=== PATIENT | female | born 1995 | race Two or more races ===

== ENCOUNTER 2018-05-30 23:32 | Emergency (ER) | payer BC ==
[~2018-05-30] VITALS: Ht 165.1 cm; Wt 77.1 kg
[2018-05-31 00:06] VITALS: BP 152/94
== END 2018-05-31 01:43 | disposition home or self-care (01) ==
LOC: ER 23:32
DX: R51 Headache (principal); I10 Essential (primary) hypertension; K21.9 Gastro-esophageal reflux disease without esophagitis; Z60.2 Problems related to living alone
CPT/HCPCS: 84703; 99283; A4606; Z7610